=== PATIENT | male | born 1960 | race Caucasian/White ===

== ENCOUNTER 2017-01-09 08:18 | Emergency (ER) | payer OTHER ==
[2017-01-09 08:30] VITALS: BP 129/93
--- NOTE | 2017-01-09 08:35 | EDM.PDOC ---
ED HPI GENERAL MEDICAL PROBLEM - General Chief Complaint: Cardiovascular Problem Stated Complaint: AFIB Time Seen by Provider: 01/09/17 08:34 - History of Present Illness INITIAL COMMENTS - FREE TEXT/NARRATIVE: 56-year-old male presents emergency room with a irregular heartbeat and a history of atrial fibrillation in the past. Patient awoke at approximately 3:30 this morning and noticed his pulse was faster than normal. He was not having any associated symptoms at that time. The patient awoke again around 4:30 and found his pulse to be irregular and rapid. He had a mild chest pressure at that time. The pressure has resolved however the rapid rate and irregularity continues. Patient has a history of atrial fibrillation on and off for about the last 20-25 years. The patient has had a aortic valve replacement animal origin. He also has had some other valve repair. He's been on and off Coumadin. He had a ablation done in February of this year. The patient was back in atrial fibrillation in April this was medically managed he was back in sinus and off the Coumadin again in May. At this time he is chest pain-free his vital signs are stable. He is demonstrating no signs or symptoms of any compromise from his mildly elevated atrial fib with RVR Yesterday the patient felt fine and he's done well recently. He is scheduled to see Dr. Aguilar February 22. - Related Data Allergies Allergy/AdvReac Type Severity Reaction Status Date / Time iodine Allergy Itching Verified 01/09/17 08:27 Home Meds: Home Meds Propafenone [Rythmol] 225 mg PO TID 05/19/15 [History] Aspirin [Ecotrin] 325 mg PO DAILY 01/09/17 [History] Diltiazem [Cardizem CD] 180 mg PO DAILY 01/09/17 [History] Pravastatin Sodium 10 mg PO DAILY 01/09/17 [History] Propafenone [Rythmol] 300 mg PO Q8H #180 tablet 01/09/17 [Rx] Vitamin E 400 intnl unit PO DAILY 01/09/17 [History] Zinc Amino Acid Chelate [Zinc Chelated] 50 mg PO DAILY 01/09/17 [History] Past Medical History Cardiovascular History: Reports: Afib, High Cholesterol, Hypertension - Past Surgical History Cardiovascular Surgical History: Reports: Valve Replacement Musculoskeletal Surgical History: Reports: Shoulder Surgery Social & Family History - Tobacco Use Smoking Status *Q: Never Smoker - Recreational Drug Use Recreational Drug Use: No - Living Situation & Occupation Living situation: Reports: Occupation: Employed ED ROS GENERAL - Review of Systems Review Of Systems: See Below Constitutional: Reports: No Symptoms HEENT: Reports: No Symptoms Respiratory: Reports: No Symptoms Cardiovascular: Reports: Chest Pain (He had some brief chest discomfort this is resolved), Palpitations. Denies: Edema GI/Abdominal: Reports: No Symptoms Neurological: Reports: No Symptoms Hematologic/Lymphatic: Reports: No Symptoms ED EXAM, GENERAL - Physical Exam Exam: See Below Exam Limited By: No Limitations General Appearance: Alert, No Apparent Distress, Other (Vital signs stable no anginal equivalence) Head: Atraumatic, Normocephalic Neck: Normal Inspection, Supple, Non-Tender, Full Range of Motion. No: Lymphadenopathy (L), Lymphadenopathy (R), Thyromegaly Respiratory/Chest: No Respiratory Distress, Lungs Clear, Normal Breath Sounds Cardiovascular: No Edema, Tachycardia, Irregularly Irregular GI/Abdominal: Normal Bowel Sounds, Soft, Non-Tender EKG INTERPRETATION EKG Date: 01/09/17 Rhythm: A-Fib [place]: RAD-Right [place] Deviation P-Wave: Absent QRS: Normal ST-T: Other (Nonspecific nondiagnostic changes) QT: Normal Comparison: No Change (Patient had an EKG done arch 2015 no significant changes noted however on that EKG he did have frequent PVCs none noted now.) Course - Vital Signs Last Recorded V/S: Last Vital Signs Temp 36.0 C 01/09/17 09:26 Pulse 137 H 01/09/17 09:26 Resp 16 01/09/17 09:26 BP 129/93 H 01/09/17 09:26 Pulse Ox 98 01/09/17 09:26 - Orders/Labs/Meds Orders: Active Orders 24 hr Category Date Time Status EKG 12 Lead [EKG Documentation Completion] [RC] STAT Care 01/09/17 09:31 Active EKG 12 Lead [EKG Documentation Completion] [RC] STAT Care 01/09/17 11:22 Active Labs: Laboratory Tests 01/09/17 01/09/17 01/09/17 Range/Units 08:30 08:30 08:30 WBC 4.69 (4.23-9.07) K/mm3 RBC 4.67 (4.63-6.08) M/mm3 Hgb 14.5 (13.7-17.5) gm/L Hct 40.2 (40.1-51.0) % MCV 86.1 (79.0-92.2) fl MCH 31.0 (25.7-32.2) pg MCHC 36.1 H (32.2-35.5) g/dl RDW Std Deviation 38.5 (35.1-43.9) fL Plt Count 157 L (163-337) K/mm3 MPV 10.2 (9.4-12.3) fl Neutrophils % (Manual) 79 H (40-60) % Band Neutrophils % 0 (0-10) % Lymphocytes % (Manual) 11 L (20-40) % Atypical Lymphs % 0 % Monocytes % (Manual) 9 (2-10) % Eosinophils % (Manual) 1 (0.8-7.0) % Basophils % (Manual) 0 L (0.2-1.2) Platelet Estimate Adequate RBC Morph Comment Normal PT 11.5 (8.0-13.0) SECONDS INR 1.05 APTT 29 (22-36) SECONDS Sodium 141 (136-145) mEq/L Potassium 4.3 (3.5-5.1) mEq/L Chloride 107 (98-107) mEq/L Carbon Dioxide 26 (21-32) mEq/L Anion Gap 12.3 (5-15) BUN 15 (7-18) mg/dL Creatinine 0.9 (0.7-1.3) mg/dL Est Cr Clr Drug Dosing 103.57 mL/min Estimated GFR (MDRD) > 60 (>60) mL/min BUN/Creatinine Ratio 16.7 (14-18) Glucose 115 H (74-106) mg/dL Calcium 9.5 (8.5-10.1) mg/dL Total Bilirubin 0.4 (0.2-1.0) mg/dL AST 19 (15-37) U/L ALT 26 (16-63) U/L Alkaline Phosphatase 81 (46-116) U/L Troponin I < 0.017 (0.00-0.056) ng/mL Total Protein 6.6 (6.4-8.2) g/dl Albumin 3.6 (3.4-5.0) g/dl Globulin 3.0 gm/dL Albumin/Globulin Ratio 1.2 (1-2) Free T4 (0.76-1.46) ng/dL TSH 3rd Generation < 0.007 L (0.358-3.74) uIU/mL 01/09/17 Range/Units 08:30 WBC (4.23-9.07) K/mm3 RBC (4.63-6.08) M/mm3 Hgb (13.7-17.5) gm/L Hct (40.1-51.0) % MCV (79.0-92.2) fl MCH (25.7-32.2) pg MCHC (32.2-35.5) g/dl RDW Std Deviation (35.1-43.9) fL Plt Count (163-337) K/mm3 MPV (9.4-12.3) fl Neutrophils % (Manual) (40-60) % Band Neutrophils % (0-10) % Lymphocytes % (Manual) (20-40) % Atypical Lymphs % % Monocytes % (Manual) (2-10) % Eosinophils % (Manual) (0.8-7.0) % Basophils % (Manual) (0.2-1.2) Platelet Estimate RBC Morph Comment PT (8.0-13.0) SECONDS INR APTT (22-36) SECONDS Sodium (136-145) mEq/L Potassium (3.5-5.1) mEq/L Chloride (98-107) mEq/L Carbon Dioxide (21-32) mEq/L Anion Gap (5-15) BUN (7-18) mg/dL Creatinine (0.7-1.3) mg/dL Est Cr Clr Drug Dosing mL/min Estimated GFR (MDRD) (>60) mL/min BUN/Creatinine Ratio (14-18) Glucose (74-106) mg/dL Calcium (8.5-10.1) mg/dL Total Bilirubin (0.2-1.0) mg/dL AST (15-37) U/L ALT (16-63) U/L Alkaline Phosphatase (46-116) U/L Troponin I (0.00-0.056) ng/mL Total Protein (6.4-8.2) g/dl Albumin (3.4-5.0) g/dl Globulin gm/dL Albumin/Globulin Ratio (1-2) Free T4 2.55 H (0.76-1.46) ng/dL TSH 3rd Generation (0.358-3.74) uIU/mL Meds: Medications Discontinued Medications Generic Name Dose Route Start Last Admin Trade Name [place] PRN Reason Stop Dose Admin Enoxaparin Sodium 100 mg 01/09/17 09:24 01/09/17 09:35 Lovenox SUBCUT 01/09/17 09:25 100 mg ONETIME ONE Administration - Re-Assessments/Exams Free Text/Narrative Re-Assessment/Exam: 01/09/17 09:28 Attempted to discuss the situation with Dr. Aguilar, he is scrubbed in on a procedure was able to discuss situation with [place] his nurse practitioner and the recommendation is cardioversion with his history of valvular heart disease they would like him to receive a dose of Lovenox prior to this and he needs to be started on a novel anti-coagulant or Coumadin with Lovenox bridge therapy pending the results of the attempted cardioversion. Zack from anesthesia is here the patient will receive a dose of Lovenox and we will attempt cardioversion discussed risks and benefits of the cardioversion with the patient and his risks including decompensated worsening dysrhythmias, pain, possibility of a stroke albeit highly unlikely. 01/09/17 09:39 Labs reviewed troponin negative chemistries CBC thus far unremarkable his TSH is suppressed at 0.007, we will check a free T4. Patient is been evaluated by anesthesia at the patient has had a large meal around 7:00 this morning we'll delay cardioversion until approximately 12:30 mid day. However with this suppressed TSH cardiology may elect for us not to cardiovert. 01/09/17 09:51 Is reviewed with [place] from cardiology, electrophysiology. Dr. Aguilar's recommendation is to discharge with Rythmol increase to 300 mg 3 times a day if rate control as needed increase his diltiazem to 240 g daily discussed with the patient that cardioversion is less successful with his hyperthyroidism [place] will arrange endocrinology follow-up. With the thyroid dysfunction irregardless the patient needs to be on anticoagulation. 01/09/17 12:01 After 11:00 the patient converted to sinus arm immediately after doing this he had frequent PACs by the time we get an EKG on him he didn't have any more PACs he has a rare PVC on telemetry at this point. Case discussed with [place] with Dr. Aguilar's office her recommendations is Coumadin is optional at this point we will increase the Rythmol to 300 mg 3 times a day we'll not adjust the diltiazem. We discussed the pros and cons of starting Coumadin patient would like to hold off on this at this point. Departure - Departure Time of Disposition: 12:03 Disposition: Home, Self-Care Clinical Impression: Atrial fibrillation with RVR Referrals: Cali Hernandez MD [Primary Care Provider] - Forms: ED Department Discharge Additional Instructions: Return to emergency room with any questions problems or recurrent symptoms. [place] from Dr. Aguilar's office will try and get you set up to see endocrinology. Call Sunday if you have not heard back from them. We will increase her Rythmol to 300 mg 3 times a day. This will be in the form of 2 150 mg tablets every 8 hours. Follow-up with Dr. Aguilar on February 22 as previously scheduled. Per our discussion we will continue you on aspirin will not start Coumadin at this point. However if you have recurrent episodes of atrial fibrillation this may need to be reconsidered. - My Orders Last 24 Hours: My Active Orders 01/09/17 09:31 EKG 12 Lead [EKG Documentation Completion] [RC] STAT 01/09/17 11:22 EKG 12 Lead [EKG Documentation Completion] [RC] STAT - Assessment/Plan Last 24 Hours: My Active Orders 01/09/17 09:31 EKG 12 Lead [EKG Documentation Completion] [RC] STAT 01/09/17 11:22 EKG 12 Lead [EKG Documentation Completion] [RC] STAT
--- NOTE | 2017-01-09 09:23 | PCM.PREANE ---
Preanesthetic Assessment - Anesthesia/Transfusion/Family Hx Anesthesia History: Prior Anesthesia Without Reaction Type of Anesthesia Reaction: Anesthesia Awareness Family History of Anesthesia Reaction: No Transfusion History: No Prior Transfusion(s) - Review of Systems General: Malaise Pulmonary: No Symptoms Cardiovascular: Palpitations Gastrointestinal: No Symptoms Neurological: No Symptoms - Physical Assessment NPO Status Date: 01/09/17 NPO Status Time: 06:45 Pulse: 137 O2 Sat by Pulse Oximetry: 98 Respiratory Rate: 16 Blood Pressure: 129/93 Temperature: 36.0 C Vital Signs: Last Vital Signs Temp 36.0 C 01/09/17 08:27 Pulse 137 H 01/09/17 08:27 Resp BP 129/93 H 01/09/17 08:27 Pulse Ox 98 01/09/17 08:27 Height: 1.85 m Weight: 112.037 kg ASA Class: 3 Mental Status: Alert & Oriented x3 Airway Class: Mallampati = 1 Dentition: Reports: Normal Dentition, [place](s) Thyro-Mental Finger Breadths: 3 Mouth Opening Finger Breadths: 3 ROM/Head Extension: Full Lungs: Clear to Auscultation, Normal Respiratory Effort Cardiovascular: Irregular Rhythm, Tachycardia - Lab Values: Laboratory Last Values WBC 4.69 K/mm3 (4.23-9.07) 01/09/17 08:30 RBC 4.67 M/mm3 (4.63-6.08) 01/09/17 08:30 Hgb 14.5 gm/L (13.7-17.5) 01/09/17 08:30 Hct 40.2 % (40.1-51.0) 01/09/17 08:30 MCV 86.1 fl (79.0-92.2) 01/09/17 08:30 MCH 31.0 pg (25.7-32.2) 01/09/17 08:30 MCHC 36.1 g/dl (32.2-35.5) H 01/09/17 08:30 RDW Std Deviation 38.5 fL (35.1-43.9) 01/09/17 08:30 Plt Count 157 K/mm3 (163-337) L 01/09/17 08:30 MPV 10.2 fl (9.4-12.3) 01/09/17 08:30 PT 11.5 SECONDS (8.0-13.0) 01/09/17 08:30 INR 1.05 01/09/17 08:30 APTT 29 SECONDS (22-36) 01/09/17 08:30 - Imaging/EKG Impressions: on chart - Allergies Allergies/Adverse Reactions: Allergies Allergy/AdvReac Type Severity Reaction Status Date / Time iodine Allergy Itching Verified 01/09/17 08:27 - Blood Blood Available: No Product(s) Available: None - Anesthesia Plan Pre-Op Medication Ordered: None - Acknowledgements Anesthesia Type Planned: MAC Pt an Appropriate Candidate for the Planned Anesthesia: Yes Alternatives and Risks of Anesthesia Discussed w Pt/Guardian: Yes Pt/Guardian Understands and Agrees with Anesthesia Plan: Yes PreAnesthesia Questionnaire HEENT History: Reports: Impaired Vision Other HEENT History: wears eyeglasses Cardiovascular History: Reports: Afib, High Cholesterol, Hypertension Respiratory History: Reports: Pneumonia, Recurrent Musculoskeletal History: Reports: Fracture, Other (See Below) Other Musculoskeletal History: R) wrist surgery. 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 - Past Surgical History Cardiovascular Surgical History: Reports: Valve Replacement Musculoskeletal Surgical History: Reports: Shoulder Surgery - SUBSTANCE USE Smoking Status *Q: Never Smoker Second Hand Smoke Exposure: No Days Per Week of Alcohol Use: 0 Number of Drinks Per Day: 0 Total Drinks Per Week: 0 Recreational Drug Use History: No - HOME MEDS Home Medications: Home Meds Propafenone [Rythmol] 225 mg PO TID 05/19/15 [History] Aspirin [Ecotrin] 325 mg PO DAILY 01/09/17 [History] Diltiazem [Cardizem CD] 180 mg PO DAILY 01/09/17 [History] Pravastatin Sodium 10 mg PO DAILY 01/09/17 [History] Vitamin E 400 intnl unit PO DAILY 01/09/17 [History] Zinc Amino Acid Chelate [Zinc Chelated] 50 mg PO DAILY 01/09/17 [History]
[2017-01-09] MEDS ORDERED: Enoxaparin 100 MG/1 ML Syringe SUBCUT ONE (09:24)
--- NOTE | 2017-01-09 10:59 | CR ---
Chest: Portable view of the chest was obtained. Comparison: Prior chest x-ray of 05/19/15. Heart size and mediastinum are within normal limits for portable technique. Sternotomy is noted for prosthetic heart valve. Lungs are clear. Bony structures are grossly intact. Impression: 1. Previous valve replacement. Nothing acute is seen on portable chest x-ray. No significant change is seen from prior study. Diagnostic code #2
== END 2017-01-09 13:30 | disposition home or self-care (01) ==
LOC: JD.ED 08:18
DX: I48.91 Unspecified atrial fibrillation (principal); I10 Essential (primary) hypertension; E78.00 Pure hypercholesterolemia, unspecified; Z79.899 Other long term (current) drug therapy; Z79.82 Long term (current) use of aspirin; Z91.048 Other nonmedicinal substance allergy status
CPT/HCPCS: 36415; 71010; 80053; 84439; 84443; 84484; 85025; 85610; 85730; 93005; 96372; 99285; J1650; 93010; 99284

== ENCOUNTER 2017-03-20 13:05 | Emergency (ER) | payer OTHER ==
[2017-03-20 13:18] VITALS: BP 102/88
[2017-03-20] MEDS ORDERED: Diltiazem 25 MG/5 ML SDV IVPUSH ONE (13:27)
[2017-03-20] MEDS ORDERED: Sodium Chloride 0.9% 10 ML Syringe FLUSH PRN (13:27)
[2017-03-20] MEDS ORDERED: Diltiazem 125 MG in Sodium Chloride 0.9% 100 ML IV SCH (13:30)
[2017-03-20] MEDS ORDERED: Sodium Chloride 0.9% 1,000 ML IV SCH (13:30)
--- NOTE | 2017-03-20 14:53 | EDM.PDOC ---
ED HPI GENERAL MEDICAL PROBLEM - General Chief Complaint: Cardiovascular Problem Stated Complaint: IRREGULAR HEART BEAT Time Seen by Provider: 03/20/17 13:24 Source of Information: Reports: Patient History Limitations: Reports: No Limitations - History of Present Illness INITIAL COMMENTS - FREE TEXT/NARRATIVE: The patient presents with palpitations. This started last night. He has a history of A-fib. He had ablation a few months ago. He has some flutter now and he is going back to get more ablation with Dr Stock. He denies chest pain or shortness of breath. He has no abdominal pain, nausea or vomiting. He has no fever, chills, or cough. Onset: Gradual Duration: Day(s): (last night) Improves with: Reports: None Worsens with: Reports: None Associated Symptoms: Denies: Chest Pain, Fever/Chills, Headaches, Nausea/ Vomiting, Shortness of Breath - Related Data Allergies Allergy/AdvReac Type Severity Reaction Status Date / Time iodine Allergy Itching Verified 01/09/17 08:27 Home Meds: Home Meds Propafenone [Rythmol] 225 mg PO TID 05/19/15 [History] Aspirin [Ecotrin] 325 mg PO DAILY 01/09/17 [History] Diltiazem [Cardizem CD] 180 mg PO DAILY 01/09/17 [History] Pravastatin Sodium 10 mg PO DAILY 01/09/17 [History] Propafenone [Rythmol] 300 mg PO Q8H #180 tablet 01/09/17 [Rx] Vitamin E 400 intnl unit PO DAILY 01/09/17 [History] Zinc Amino Acid Chelate [Zinc Chelated] 50 mg PO DAILY 01/09/17 [History] Past Medical History HEENT History: Reports: Impaired Vision Other HEENT History: wears eyeglasses Cardiovascular History: Reports: Afib, High Cholesterol, Hypertension Respiratory History: Reports: Pneumonia, Recurrent Musculoskeletal History: Reports: Fracture, Other (See Below) Other Musculoskeletal History: R) wrist surgery. 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 - Past Surgical History Cardiovascular Surgical History: Reports: Valve Replacement Musculoskeletal Surgical History: Reports: Shoulder Surgery Social & Family History - Tobacco Use Smoking Status *Q: Never Smoker Second Hand Smoke Exposure: No - Caffeine Use Caffeine Use: Reports: None - Alcohol Use Days Per Week of Alcohol Use: 0 Number of Drinks Per Day: 0 Total Drinks Per Week: 0 - Recreational Drug Use Recreational Drug Use: No - Living Situation & Occupation Living situation: Reports: Occupation: Employed ED ROS GENERAL - Review of Systems Review Of Systems: See Below Constitutional: Reports: No Symptoms HEENT: Reports: No Symptoms Respiratory: Reports: No Symptoms Cardiovascular: Reports: Palpitations. Denies: Chest Pain Endocrine: Reports: No Symptoms GI/Abdominal: Reports: No Symptoms : Reports: No Symptoms Musculoskeletal: Reports: No Symptoms ED EXAM, GENERAL - Physical Exam Exam: See Below Exam Limited By: No Limitations General Appearance: Alert, No Apparent Distress Ears: Normal External Exam Nose: Normal Inspection Head: Atraumatic, Normocephalic Neck: Normal Inspection Respiratory/Chest: No Respiratory Distress, Lungs Clear, Normal Breath Sounds Cardiovascular: No Edema, No Murmur, Tachycardia GI/Abdominal: Soft, Non-Tender, No Organomegaly, No Mass Back Exam: Normal Inspection Extremities: Normal Inspection EKG INTERPRETATION EKG Date: 03/20/17 Time: 13:19 Rhythm: Other (Junctional tachycardia) Rate (Beats/Min): 132 [place]: Normal P-Wave: Present QRS: Normal ST-T: Normal QT: Normal Course - Vital Signs Last Recorded V/S: Last Vital Signs Temp 98.6 F 03/20/17 13:13 Pulse 132 H 03/20/17 13:13 Resp 17 03/20/17 13:13 BP 102/88 03/20/17 13:13 Pulse Ox 99 03/20/17 13:13 - Orders/Labs/Meds Orders: Active Orders 24 hr Category Date Time Status Cardiac Monitoring [RC] . DIRECTED Care 03/20/17 13:27 Active EKG Documentation Completion [RC] STAT Care 03/20/17 13:27 Active Peripheral IV Care [RC] . DIRECTED Care 03/20/17 13:27 Active TSH [CHEM] Stat Lab 03/20/17 14:44 Ordered Diltiazem 125 mg Med 03/20/17 13:30 Active Sodium Chloride 0.9% [Normal Saline] 100 ml IV TITRATE Sodium Chloride 0.9% [Normal Saline] 1,000 ml Med 03/20/17 13:30 Active IV ASDIRECTED Sodium Chloride 0.9% [Saline Flush] Med 03/20/17 13:27 Active 10 ml FLUSH ASDIRECTED PRN Peripheral IV Insertion Adult [OM.PC] Stat Oth 03/20/17 13:27 Ordered Medication Orders Diltiazem HCl 125 mg/ Sodium (Chloride) 125 mls @ 10 mls/hr IV TITRATE SHANNEN; 10 MG/HR PRN Reason: Protocol Sodium Chloride (Normal Saline) 1,000 mls @ 125 mls/hr IV ASDIRECTED SHANNEN Last Admin: 03/20/17 13:40 Dose: 125 mls/hr Sodium Chloride (Saline Flush) 10 ml FLUSH ASDIRECTED PRN PRN Reason: Keep Vein Open Last Admin: 03/20/17 13:45 Dose: 10 ml Labs: Laboratory Tests 03/20/17 03/20/17 Range/Units 13:27 13:27 WBC 7.17 (4.23-9.07) K/mm3 RBC 5.11 (4.63-6.08) M/mm3 Hgb 15.6 (13.7-17.5) gm/L Hct 43.7 (40.1-51.0) % MCV 85.5 (79.0-92.2) fl MCH 30.5 (25.7-32.2) pg MCHC 35.7 H (32.2-35.5) g/dl RDW Std Deviation 42.3 (35.1-43.9) fL Plt Count 136 L (163-337) K/mm3 MPV 10.4 (9.4-12.3) fl Neut % (Auto) 61.4 (34.0-67.9) % Lymph % (Auto) 25.0 (21.8-53.1) % [place] % (Auto) 9.9 (5.3-12.2) % Eos % (Auto) 3.5 (0.8-7.0) Baso % (Auto) 0.1 (0.1-1.2) % Neut # (Auto) 4.40 (1.78-5.38) K/mm3 Lymph # (Auto) 1.79 (1.32-3.57) K/mm3 [place] # (Auto) 0.71 (0.30-0.82) K/mm3 Eos # (Auto) 0.25 (0.04-0.54) K/mm3 Baso # (Auto) 0.01 (0.01-0.08) K/mm3 Sodium 143 (136-145) mEq/L Potassium 5.0 (3.5-5.1) mEq/L Chloride 108 H (98-107) mEq/L Carbon Dioxide 26 (21-32) mEq/L Anion Gap 14.0 (5-15) BUN 17 (7-18) mg/dL Creatinine 1.0 (0.7-1.3) mg/dL Est Cr Clr Drug Dosing 93.22 mL/min Estimated GFR (MDRD) > 60 (>60) mL/min BUN/Creatinine Ratio 17.0 (14-18) Glucose 94 (74-106) mg/dL Calcium 9.0 (8.5-10.1) mg/dL Total Bilirubin 0.5 (0.2-1.0) mg/dL AST 29 (15-37) U/L ALT 25 (16-63) U/L Alkaline Phosphatase 74 (46-116) U/L Troponin I 0.020 (0.00-0.056) ng/mL Total Protein 6.7 (6.4-8.2) g/dl Albumin 3.8 (3.4-5.0) g/dl Globulin 2.9 gm/dL Albumin/Globulin Ratio 1.3 (1-2) Meds: Medications Generic Name Dose Route Start Last Admin Trade Name Freq PRN Reason Stop Dose Admin Diltiazem HCl 125 mg/ Sodium 125 mls @ 10 mls/hr 03/20/17 13:30 Chloride IV TITRATE SHANNEN Protocol 10 MG/HR Sodium Chloride 1,000 mls @ 125 mls/hr 03/20/17 13:30 03/20/17 13:40 Normal Saline IV 125 mls/hr ASDIRECTED SHANNEN Administration Sodium Chloride 10 ml 03/20/17 13:27 03/20/17 13:45 Saline Flush FLUSH 10 ml ASDIRECTED PRN Administration Keep Vein Open Discontinued Medications Generic Name Dose Route Start Last Admin Trade Name Freq PRN Reason Stop Dose Admin Diltiazem HCl 10 mg 03/20/17 13:27 03/20/17 13:42 Diltiazem IVPUSH 03/20/17 13:28 10 mg ONETIME ONE Administration - Re-Assessments/Exams Free Text/Narrative Re-Assessment/Exam: 03/20/17 14:55 I ordered an EKG, labs, CBC and CMP. His EKG shows a juntional tachycardia. I ordered a cardizem bolus of 10mg and a drip at 10mg/hr. He converted with the 10mg IV bolus. His CBC and CMP look good. His troponin is negative. I will discharge him home. 03/20/17 14:57 Please send a copy of this dictation to Dr [facility] at [facility] in [place]. Departure - Departure Time of Disposition: 15:00 Disposition: Home, Self-Care Condition: Good Clinical Impression: Palpitations, Junctional tachycardia Referrals: Cali Hernandez MD [Primary Care Provider] - 1 Week Additional Instructions: Take your medication as prescribed. Please return if you are worse. Follow up with Dr Stock and Dr Soto. - My Orders Last 24 Hours: My Active Orders 03/20/17 13:27 Cardiac Monitoring [RC] . DIRECTED EKG Documentation Completion [RC] STAT Peripheral IV Care [RC] . DIRECTED Sodium Chloride 0.9% [Saline Flush] 10 ml FLUSH ASDIRECTED PRN Peripheral IV Insertion Adult [OM.PC] Stat 03/20/17 13:30 Diltiazem 125 mg Sodium Chloride 0.9% [Normal Saline] 100 ml IV TITRATE Sodium Chloride 0.9% [Normal Saline] 1,000 ml IV ASDIRECTED 03/20/17 14:44 TSH [CHEM] Stat - Assessment/Plan Last 24 Hours: My Active Orders 03/20/17 13:27 Cardiac Monitoring [RC] . DIRECTED EKG Documentation Completion [RC] STAT Peripheral IV Care [RC] . DIRECTED Sodium Chloride 0.9% [Saline Flush] 10 ml FLUSH ASDIRECTED PRN Peripheral IV Insertion Adult [OM.PC] Stat 03/20/17 13:30 Diltiazem 125 mg Sodium Chloride 0.9% [Normal Saline] 100 ml IV TITRATE Sodium Chloride 0.9% [Normal Saline] 1,000 ml IV ASDIRECTED 03/20/17 14:44 TSH [CHEM] Stat
== END 2017-03-20 15:08 | disposition home or self-care (01) ==
LOC: JD.ED 13:05
DX: I47.1 Supraventricular tachycardia (principal); I48.91 Unspecified atrial fibrillation; I10 Essential (primary) hypertension; E78.00 Pure hypercholesterolemia, unspecified; Z95.2 Presence of prosthetic heart valve; Z79.82 Long term (current) use of aspirin; Z79.899 Other long term (current) drug therapy; Z88.8 Allergy status to other drugs, medicaments and biological substances
CPT/HCPCS: 36415; 80053; 84443; 84484; 85025; 93005; 96361; 96374; 99285; J3490; J7040; J7050; 93010; 99284-25

== ENCOUNTER 2017-07-31 15:34 | Emergency (ER) | payer OTHER ==
[2017-07-31] MEDS ORDERED: Sodium Chloride 0.9% 10 ML Syringe FLUSH PRN (15:49)
[2017-07-31] MEDS ORDERED: Sodium Chloride 0.9% 1,000 ML IV ONE (15:50)
[2017-07-31] MEDS ORDERED: Diltiazem 25 MG/5 ML SDV IVPUSH ONE (15:51)
--- NOTE | 2017-07-31 15:51 | EDM.PDOC ---
ED HPI GENERAL MEDICAL PROBLEM - General Chief Complaint: Cardiovascular Problem Stated Complaint: HEART RACING Time Seen by Provider: 07/31/17 15:47 Source of Information: Reports: Patient History Limitations: Reports: No Limitations - History of Present Illness INITIAL COMMENTS - FREE TEXT/NARRATIVE: 57 y/o M with hx paroxysmal a-fib/flutter with hx prior ablation, scheduled for repeat ablation in early August, presents with feeilng of heart racing and fatigue. Started early this morning. [place] fine yesterday. Feels like his heart is racing. Feels fatigued. No additional complaint. No CP. No SOB. No provoking factor. Has been compliant with his meds which include propranolol and propafenone. No fever/recent illness. No vomiting. No lower extremity pain/ swelling. - Related Data Allergies Allergy/AdvReac Type Severity Reaction Status Date / Time iodine Allergy Itching Verified 01/09/17 08:27 Home Meds: Home Meds Aspirin [Ecotrin] 325 mg PO DAILY 01/09/17 [History] Pravastatin Sodium 10 mg PO DAILY 01/09/17 [History] Propafenone [Rythmol] 300 mg PO Q8H #180 tablet 01/09/17 [Rx] Vitamin E 400 intnl unit PO DAILY 01/09/17 [History] Zinc Amino Acid Chelate [Zinc Chelated] 50 mg PO DAILY 01/09/17 [History] Calcium Carbonate/Vitamin D3 [Calcium 500 + Vit D Caplet] 1 each PO DAILY [History] Fish Oil/[place]-3 Fatty Acids [Fish Oil] 1 each PO DAILY 07/31/17 [History] Nystatin 1 applic TP ASDIRECTED PRN 07/31/17 [History] Propranolol HCl [Inderal Xl] 80 mg PO DAILY 07/31/17 [History] Triamcinolone Acetonide [Triamcinolone Acetonide 0.1% Crm] 1 applic TOP ASDIRECTED PRN 07/31/17 [History] Ubidecarenone [Co Q-10] 100 mg PO DAILY 07/31/17 [History] Warfarin [Coumadin] 7.5 mg PO ASDIRECTED 07/31/17 [History] Warfarin [Coumadin] 10 mg PO ASDIRECTED 07/31/17 [History] Past Medical History HEENT History: Reports: Impaired Vision Other HEENT History: wears eyeglasses Cardiovascular History: Reports: Afib, High Cholesterol, Hypertension Respiratory History: Reports: Pneumonia, Recurrent Musculoskeletal History: Reports: Fracture, Other (See Below) Other Musculoskeletal History: R) wrist surgery. 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 - Past Surgical History Cardiovascular Surgical History: Reports: Valve Replacement Musculoskeletal Surgical History: Reports: Shoulder Surgery Social & Family History - Family History Family Medical History: Noncontributory - Tobacco Use Smoking Status *Q: Never Smoker - Caffeine Use Caffeine Use: Reports: Soda - Recreational Drug Use Recreational Drug Use: No - Living Situation & Occupation Living situation: Reports: Occupation: Employed [employer] GENERAL - Review of Systems Review Of Systems: See Below Constitutional: Reports: Weakness, Fatigue HEENT: Reports: No Symptoms Respiratory: Denies: Shortness of Breath Cardiovascular: Reports: Palpitations. Denies: Chest Pain Endocrine: Reports: No Symptoms GI/Abdominal: Reports: No Symptoms : Reports: No Symptoms Musculoskeletal: Reports: No Symptoms Skin: Reports: No Symptoms Neurological: Reports: No Symptoms ED EXAM, GENERAL - Physical Exam Exam: See Below Exam Limited By: No Limitations General Appearance: Alert, WD/WN, No Apparent Distress Eye Exam: Bilateral Eye: Normal Inspection Ears: Normal External Exam Nose: Normal Inspection Throat/Mouth: Normal Inspection, Normal Oropharynx, Normal Voice, No Airway Compromise Head: Atraumatic, Normocephalic Neck: Normal Inspection, Supple, Non-Tender, Full Range of Motion Respiratory/Chest: No Respiratory Distress, Lungs Clear, Normal Breath Sounds, No Accessory Muscle Use, Chest Non-Tender Cardiovascular: Normal Peripheral Pulses, No Edema, No Murmur, Tachycardia, Other (regular) GI/Abdominal: Soft, Non-Tender, No Distention. No: Rebound Extremities: Normal Inspection. No: Pedal Edema Neurological: Alert, Oriented, Normal Cognition, No Motor/Sensory Deficits Psychiatric: Normal Affect, Normal Mood Skin Exam: Warm, Dry, Intact, Normal Color, No Rash Course - Vital Signs Last Recorded V/S: Last Vital Signs Temp 36.6 C 07/31/17 17:26 Pulse 58 L 07/31/17 17:26 Resp 17 07/31/17 17:26 BP 98/68 07/31/17 17:26 Pulse Ox 98 07/31/17 17:26 - Orders/Labs/Meds Orders: Active Orders 24 hr Category Date Time Status EKG 12 Lead [EKG Documentation Completion] [RC] STAT Care 07/31/17 16:14 Active EKG Documentation Completion [RC] STAT Care 07/31/17 16:09 Active Peripheral IV Care [RC] . DIRECTED Care 07/31/17 15:49 Active Chest 1V Frontal [CR] Stat Exams 07/31/17 15:49 Taken T4 FREE [CHEM] Stat Lab 07/31/17 15:55 Received Sodium Chloride 0.9% [Saline Flush] Med 07/31/17 15:49 Active 10 ml FLUSH ASDIRECTED PRN Peripheral IV Insertion Adult [OM.PC] Routine Oth 07/31/17 15:49 Ordered Medication Orders Sodium Chloride (Saline Flush) 10 ml FLUSH ASDIRECTED PRN PRN Reason: Keep Vein Open Last Admin: 07/31/17 16:04 Dose: 10 ml Labs: Laboratory Tests 07/31/17 07/31/17 07/31/17 Range/Units 15:55 15:55 15:55 WBC 5.92 (4.23-9.07) K/mm3 RBC 4.83 (4.63-6.08) M/mm3 Hgb 15.1 (13.7-17.5) gm/L Hct 42.1 (40.1-51.0) % MCV 87.2 (79.0-92.2) fl MCH 31.3 (25.7-32.2) pg MCHC 35.9 H (32.2-35.5) g/dl RDW Std Deviation 40.6 (35.1-43.9) fL Plt Count 161 L (163-337) K/mm3 MPV 10.4 (9.4-12.3) fl Neut % (Auto) 63.3 (34.0-67.9) % Lymph % (Auto) 21.8 (21.8-53.1) % Placer % (Auto) 11.7 (5.3-12.2) % Eos % (Auto) 3.0 (0.8-7.0) Baso % (Auto) 0.0 L (0.1-1.2) % Neut # (Auto) 3.75 (1.78-5.38) K/mm3 Lymph # (Auto) 1.29 L (1.32-3.57) K/mm3 Placer # (Auto) 0.69 (0.30-0.82) K/mm3 Eos # (Auto) 0.18 (0.04-0.54) K/mm3 Baso # (Auto) 0.00 L (0.01-0.08) K/mm3 PT 24.7 H (9.5-12.1) SECONDS INR 2.30 Sodium 141 (136-145) mEq/L Potassium 4.2 (3.5-5.1) mEq/L Chloride 108 H (98-107) mEq/L Carbon Dioxide 23 (21-32) mEq/L Anion Gap 14.2 (5-15) BUN 20 H (7-18) mg/dL Creatinine 1.1 (0.7-1.3) mg/dL Est Cr Clr Drug Dosing 83.73 mL/min Estimated GFR (MDRD) > 60 (>60) mL/min BUN/Creatinine Ratio 18.2 H (14-18) Glucose 121 H (74-106) mg/dL Calcium 9.3 (8.5-10.1) mg/dL Magnesium 1.9 (1.8-2.4) mg/dl Total Bilirubin 0.6 (0.2-1.0) mg/dL AST 19 (15-37) U/L ALT 25 (16-63) U/L Alkaline Phosphatase 69 (46-116) U/L Troponin I 0.027 (0.00-0.056) ng/mL Total Protein 6.7 (6.4-8.2) g/dl Albumin 3.8 (3.4-5.0) g/dl Globulin 2.9 gm/dL Albumin/Globulin Ratio 1.3 (1-2) TSH 3rd Generation (0.358-3.74) uIU/mL 07/31/17 Range/Units 15:55 WBC (4.23-9.07) K/mm3 RBC (4.63-6.08) M/mm3 Hgb (13.7-17.5) gm/L Hct (40.1-51.0) % MCV (79.0-92.2) fl MCH (25.7-32.2) pg MCHC (32.2-35.5) g/dl RDW Std Deviation (35.1-43.9) fL Plt Count (163-337) K/mm3 MPV (9.4-12.3) fl Neut % (Auto) (34.0-67.9) % Lymph % (Auto) (21.8-53.1) % Placer % (Auto) (5.3-12.2) % Eos % (Auto) (0.8-7.0) Baso % (Auto) (0.1-1.2) % Neut # (Auto) (1.78-5.38) K/mm3 Lymph # (Auto) (1.32-3.57) K/mm3 Placer # (Auto) (0.30-0.82) K/mm3 Eos # (Auto) (0.04-0.54) K/mm3 Baso # (Auto) (0.01-0.08) K/mm3 PT (9.5-12.1) SECONDS INR Sodium (136-145) mEq/L Potassium (3.5-5.1) mEq/L Chloride (98-107) mEq/L Carbon Dioxide (21-32) mEq/L Anion Gap (5-15) BUN (7-18) mg/dL Creatinine (0.7-1.3) mg/dL Est Cr Clr Drug Dosing mL/min Estimated GFR (MDRD) (>60) mL/min BUN/Creatinine Ratio (14-18) Glucose (74-106) mg/dL Calcium (8.5-10.1) mg/dL Magnesium (1.8-2.4) mg/dl Total Bilirubin (0.2-1.0) mg/dL AST (15-37) U/L ALT (16-63) U/L Alkaline Phosphatase (46-116) U/L Troponin I (0.00-0.056) ng/mL Total Protein (6.4-8.2) g/dl Albumin (3.4-5.0) g/dl Globulin gm/dL Albumin/Globulin Ratio (1-2) TSH 3rd Generation 3.380 (0.358-3.74) uIU/mL Meds: Medications Generic Name Dose Route Start Last Admin Trade Name Freq PRN Reason Stop Dose Admin Sodium Chloride 10 ml 07/31/17 15:49 07/31/17 16:04 Saline Flush FLUSH 10 ml ASDIRECTED PRN Administration Keep Vein Open Discontinued Medications Generic Name Dose Route Start Last Admin Trade Name [place] PRN Reason Stop Dose Admin Diltiazem HCl 10 mg 07/31/17 15:51 07/31/17 16:07 Diltiazem IVPUSH 07/31/17 15:52 10 mg ONETIME ONE Administration Sodium Chloride 1,000 mls @ 1,000 mls/hr 07/31/17 15:50 07/31/17 16:05 Normal Saline IV 07/31/17 16:49 1,000 mls/hr ONETIME ONE Administration - Re-Assessments/Exams Free Text/Narrative Re-Assessment/Exam: 07/31/17 16:56 CXR shows no acute abnormality. EKG shows narrow complex tachycardia, absent p- waves, c/w junctional tachycardia, rate 130, similar to EKG dated 03/08. Given diltiazem 10mg IV and converted to NSR. Rpt EKG shows NSR, normal intervals, T wave inversions leads V3/4, no significant ST abnormality. Labs pending. Encouarged pt to keep taking his meds as prescribed and f/u with cardiology as planned. Discussed return precautions. Departure - Departure Time of Disposition: 17:15 Disposition: Home, Self-Care 01 Clinical Impression: Junctional tachycardia Referrals: Cali Hernandez MD [Primary Care Provider] - Forms: ED Department Discharge Additional Instructions: 1. Follow up with your carpet measurer in August as planned 2. Continue your current medications. Your lab results including thyroid function tests were normal. 3. Return to the ED if you have a new episode of heart racing, chest pain, shortness of breath, or other concerning symptoms - My Orders Last 24 Hours: My Active Orders 07/31/17 15:49 Peripheral IV Care [RC] . DIRECTED Chest 1V Frontal [CR] Stat Sodium Chloride 0.9% [Saline Flush] 10 ml FLUSH ASDIRECTED PRN Peripheral IV Insertion Adult [OM.PC] Routine 07/31/17 15:55 T4 FREE [CHEM] Stat 07/31/17 16:09 EKG Documentation Completion [RC] STAT 07/31/17 16:14 EKG 12 Lead [EKG Documentation Completion] [RC] STAT - Assessment/Plan Last 24 Hours: My Active Orders 07/31/17 15:49 Peripheral IV Care [RC] . DIRECTED Chest 1V Frontal [CR] Stat Sodium Chloride 0.9% [Saline Flush] 10 ml FLUSH ASDIRECTED PRN Peripheral IV Insertion Adult [OM.PC] Routine 07/31/17 15:55 T4 FREE [CHEM] Stat 07/31/17 16:09 EKG Documentation Completion [RC] STAT 07/31/17 16:14 EKG 12 Lead [EKG Documentation Completion] [RC] STAT
[2017-07-31 17:35] VITALS: BP 98/68
--- NOTE | 2017-08-01 07:44 | CR ---
Chest: Portable view of the chest was obtained. Comparison: Prior chest x-ray of 01/09/17. Heart size is slightly prominent but accentuated from portable technique. Sternotomy is noted with prosthetic heart valve. Lungs are clear with no acute parenchymal change. Bony structures are grossly intact. Impression: 1. Nothing acute is seen on portable chest x-ray. Diagnostic code #2
== END 2017-07-31 17:26 | disposition home or self-care (01) ==
LOC: JD.ED 15:34
DX: I47.1 Supraventricular tachycardia (principal); I10 Essential (primary) hypertension; Z79.82 Long term (current) use of aspirin; Z79.899 Other long term (current) drug therapy; Z91.09 Other allergy status, other than to drugs and biological substances
CPT/HCPCS: 36415; 71045; 80053; 83735; 84439; 84443; 84484; 85025; 85610; 93005; 96361; 96374; 99285; J3490; J7040; J7050; 93010; 99284-25

== ENCOUNTER 2017-09-23 15:17 | Emergency (ER) | payer OTHER ==
[2017-09-23 15:30] VITALS: BP 121/81
--- NOTE | 2017-09-23 15:40 | EDM.PDOC ---
ED HPI GENERAL MEDICAL PROBLEM - General Chief Complaint: Eye Problems Stated Complaint: L EYE INJURY Time Seen by Provider: 09/23/17 15:40 Source of Information: Reports: Patient History Limitations: Reports: No Limitations - History of Present Illness INITIAL COMMENTS - FREE TEXT/NARRATIVE: 57-year-old male attends the ED with an acute injury to his left eye. He states he was out working in the garden and Benadryl over and a bamboo stick poked him in the left eye. This is resulted in an acute abrasion to the upper eyelid and eyebrow area. Reports eye pain and some diplopia in certain areas of his visual field. He feels like there is vertical diplopia where he can see to numbers one on top of the other when he looks at a clock etc. Injury occurred within the last hour. He's not sure when his last tetanus toxoid was updated. Onset: Today Onset Date: 09/23/17 Onset Time: 15:00 Duration: Minutes: Location: Reports: Face (Left alae.) Quality: Reports: Ache, Burning, Other (Double vision) Severity: Moderate Improves with: Reports: Rest (An eye closure.) Worsens with: Reports: Other (Appears to have double vision on looking particularly left lateral and upwards. Skin C2 6 is 1 tab the other when he looks at the clock and normal etc. Has not appreciated diplopia on looking near but only far away.) Context: Reports: Trauma. Denies: Activity, Exercise, Lifting, Sick Contact Associated Symptoms: Reports: No Other Symptoms. Denies: Confusion, Chest Pain , Cough, cough w sputum, Diaphoresis, Fever/Chills, Loss of Appetite, Malaise, Nausea/Vomiting Treatments SOCIAL MEDIA EXECUTIVE: Reports: Other (see below) (None.) Left Eye Pain Score (Numeric/FACES): 2 - Related Data Allergies Allergy/AdvReac Type Severity Reaction Status Date / Time iodine Allergy Itching Verified 09/23/17 15:26 Home Meds: Home Meds Aspirin [Ecotrin] 325 mg PO DAILY 01/09/17 [History] Pravastatin Sodium 10 mg PO DAILY 01/09/17 [History] Propafenone [Rythmol] 300 mg PO Q8H #180 tablet 01/09/17 [Rx] Vitamin E 400 intnl unit PO DAILY 01/09/17 [History] Zinc Amino Acid Chelate [Zinc Chelated] 50 mg PO DAILY 01/09/17 [History] Calcium Carbonate/Vitamin D3 [Calcium 500 + Vit D Caplet] 1 each PO DAILY [History] Fish Oil/[place]-3 Fatty Acids [Fish Oil] 1 each PO DAILY 07/31/17 [History] Nystatin 1 applic TP ASDIRECTED PRN 07/31/17 [History] Propranolol HCl [Inderal Xl] 80 mg PO DAILY 07/31/17 [History] Triamcinolone Acetonide [Triamcinolone Acetonide 0.1% Crm] 1 applic TOP ASDIRECTED PRN 07/31/17 [History] Ubidecarenone [Co Q-10] 100 mg PO DAILY 07/31/17 [History] Warfarin [Coumadin] 7.5 mg PO ASDIRECTED 07/31/17 [History] Warfarin [Coumadin] 10 mg PO ASDIRECTED 07/31/17 [History] Past Medical History HEENT History: Reports: Impaired Vision Other HEENT History: wears eyeglasses Cardiovascular History: Reports: Afib (And is on Coumadin.), Arrhythmia, High Cholesterol, Hypertension Respiratory History: Reports: Pneumonia, Recurrent Musculoskeletal History: Reports: Fracture, Other (See Below) Other Musculoskeletal History: R) wrist surgery. 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 - Past Surgical History Cardiovascular Surgical History: Reports: Valve Replacement Musculoskeletal Surgical History: Reports: Shoulder Surgery Social & Family History - Family History Family Medical History: Noncontributory - Tobacco Use Smoking Status *Q: Never Smoker - Caffeine Use Caffeine Use: Reports: Soda - Living Situation & Occupation Living situation: Reports: Occupation: Employed [facility] [employer] - Review of Systems Review Of Systems: See Below Constitutional: Denies: Fever, Chills, Malaise, Weakness, Fatigue, Decreased Appetite HEENT: Reports: Eye Pain (See history of present illness), Glasses (Only for reading.). Denies: Contact Lenses Respiratory: Reports: No Symptoms Cardiovascular: Reports: Lightheadedness, Palpitations. Denies: Chest Pain, Blood Pressure Problem, Claudication, Dyspnea on Exertion, Edema (Occasionally.) , Orthopnea Endocrine: Reports: Fatigue (Occasionally. From medications.) GI/Abdominal: Reports: No Symptoms : Reports: No Symptoms Musculoskeletal: Reports: No Symptoms Skin: Reports: No Symptoms Neurological: Reports: No Symptoms Psychiatric: Reports: No Symptoms Hematologic/Lymphatic: Reports: No Symptoms Immunologic: Reports: No Symptoms ED EXAM GENERAL W FULL EYE - Physical Exam Exam: See Below Exam Limited By: No Limitations General Appearance: Alert, WD/WN, No Apparent Distress Eye Exam: Left Eye: Normal Fundi, Normal Inspection, Periorbital Changes ( Patient has a linear abrasion across his upper eyelid and involving the mid lateral aspect of his left eyebrow area.) Eyelids: Left: Normal Appearance (Abrasion with contusion and swelling of the upper eyelid.) Conjunctiva & Sclera: Left: Injected (Appears to of contused the superior aspect of the sclera via his upper eyelid. This is a superficial contusion without any deep abrasion of the sclera per se.) Cornea Exam: Left: Normal Appearance Extraocular Movements: Bilateral: Other (I believe he has pain from contusion to the sclera which limits his mobility due to pain. On my assessment his visual canseco were normal and he was able to follow the light well with no signs of a gaze palsy.) Pupils: Normal Accommodation Pupillary Size: Right: 6 mm Pupillary Reaction: Bilateral: Brisk Anterior Chamber: Left: Normal Appearance Posterior Chamber: Left: Normal Funduscopic Course - Vital Signs Last Recorded V/S: Last Vital Signs Temp 36.9 C 09/23/17 15:26 Pulse 63 09/23/17 15:26 Resp BP 121/81 09/23/17 15:26 Pulse Ox 98 09/23/17 15:26 - Orders/Labs/Meds Meds: Medications Discontinued Medications Generic Name Dose Route Start Last Admin Trade Name Freq PRN Reason Stop Dose Admin Diphtheria/Tetanus/Acell Pertussis 0.5 ml 09/23/17 15:55 09/23/17 16:07 Adacel IM 09/23/17 15:56 0.5 ml .ONCE ONE Administration - Radiology Interpretation Free Text/Narrative:: 57-year-old male attends the ED with blunt trauma to his left upper eyelid and eyebrow area. He appreciates some diplopia but I believe it secondary to pain response due to contusion of the superior aspect of the sclera. There is no true intraocular injury with an evidence of intraocular bleeding or a true gaze palsy on examination. He does have a significant abrasion with swelling of his left upper eyelid and similarly abrasion contusion to the left eyebrow area. These will be treated conservatively with topical antibiotic. Follow up 48 hours with milieu coordinator if any further problems with double vision occur. Departure - Departure Time of Disposition: 16:08 Disposition: Home, Self-Care 01 Condition: Fair Clinical Impression: Contusion of left eyelid and periocular area, initial encounter - Discharge Information *PRESCRIPTION DRUG MONITORING PROGRAM REVIEWED*: Not Applicable *COPY OF PRESCRIPTION DRUG MONITORING REPORT IN PATIENT BRAD: Not Applicable Instructions: Contusion, [id number] Referrals: Cali Hernandez MD [Primary Care Provider] - Forms: ED Department Discharge Additional Instructions: Evaluation the emergency room today in regards to contusion to the left upper eyelid and left eyebrow area. Injury occurred while working in the garden and looking down and was struck by a bamboo stick. This resulted in a contusion to the left upper part of your eye /eyelid with an abrasion above the left mid eye brow. You have appreciated double vision in certain movements . Full inspection of the eye including slit-lamp exam shows no injury to the cornea and no blood within the true eye itself. There appears to be a contusion to the upper sclera of your left eyeball which is resulted in pain with certain movements causing some mild double vision but this should settle down over the next 36 hours as the swelling goes away. Wound / abrasion above the eyebrow needs to be cleansed daily with soap and water. Showering is okay. Then apply topical anabolic such as bacitracin or Polysporin to the wound once daily until healed. Follow-up with milieu coordinator or eye doctor if not completely back to normal in 36 hours time. Tetanus, diphtheria and pertussis vaccine was updated today and is good for the next 10 years.
[2017-09-23] MEDS ORDERED: Diphtheria,Pertussis(Acell),Tetanus Vaccine 0.5 ML SDV IM ONE (15:55)
== END 2017-09-23 16:20 | disposition home or self-care (01) ==
LOC: JD.ED 15:17
DX: S00.12XA Contusion of left eyelid and periocular area, initial encounter (principal); Z23 Encounter for immunization; I10 Essential (primary) hypertension; E78.00 Pure hypercholesterolemia, unspecified; Z79.82 Long term (current) use of aspirin; Z79.899 Other long term (current) drug therapy; W22.8XXA Striking against or struck by other objects, initial encounter; Y92.096 Garden or yard of other non-institutional residence as the place of occurrence of the external cause
CPT/HCPCS: 90471; 90715; 99283; 99283-25

== ENCOUNTER 2018-05-14 20:57 | Emergency (ER) | payer OTHER ==
--- NOTE | 2018-05-14 21:38 | EDM.PDOC ---
ED HPI GENERAL MEDICAL PROBLEM - General Chief Complaint: Cardiovascular Problem Stated Complaint: A-FIB Time Seen by Provider: 05/14/18 21:47 Source of Information: Reports: Patient History Limitations: Reports: No Limitations - History of Present Illness INITIAL COMMENTS - FREE TEXT/NARRATIVE: 37-year-old male presents to the ED with recognized palpitations in his chest. Patient has a history of paroxysmal atrial fibrillation. His required ablation 2 in the past. He has had previous open heart surgery and aortic valve replacement. He remains on Coumadin chronically. He is on flecainide 300 mg 3 times a day to try and prevent arrhythmias from occurring. Also on propanolol 80 mg long-acting for rate control. He appreciated onset of symptoms highly earlier in the morning as he felt fatigued and tired but when he checked his pulse it was in the mid 80s. After work , about mid afternoon today 1600 hrs. he started to feel palpitations when he got home he checked his pulse and identified that his rate was up as high as 130/min. He has no other symptoms of chest pain shortness of breath or dizziness. He states his blood pressure always runs a bit on the low side due to the current medications he is on. Patient usually receives Cardizem intravenously and for the most part has converted back to sinus rhythm. He has had cardioversion on at least 2 occasions however which was successful both times. Monitor shows atrial fibrillation with a rate up to 1 35/m. This is confirmed with ECG. Rate is 68-1 40/m on ECG. There is a nonspecific inotropic check her conduction delay. Early R-wave transition suggesting right ventricle hypertrophy versus septal hypertrophy pattern. There is T-wave inversion V3 to V4 and flattening V5 and P6 suggesting possible ischemia. There is mild left axis deviation of -6. The QTc interval is normal. Onset: Today, Sudden Onset Date: 05/14/18 Onset Time: 16:00 Duration: Hour(s):, Constant Location: Reports: Chest (Aware of palpitations intermittently in his chest.) Quality: Reports: Same as Previous Episode. Denies: Ache, Dull, Pressure, Sharp , Stabbing, Throbbing, Other Severity: Mild Improves with: Reports: None Worsens with: Reports: None Context: Reports: Other (History of paroxysmal atrial fibrillation.). Denies: Activity, Exercise, Lifting, Sick Contact, Trauma Associated Symptoms: Reports: Loss of Appetite, Malaise. 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.) - Related Data Allergies Allergy/AdvReac Type Severity Reaction Status Date / Time iodine Allergy Itching Verified 05/14/18 21:05 Home Meds: Home Meds Aspirin [Ecotrin] 325 mg PO DAILY 01/09/17 [History] Pravastatin Sodium 10 mg PO DAILY 01/09/17 [History] Propafenone [Rythmol] 300 mg PO Q8H #180 tablet 01/09/17 [Rx] Vitamin E 400 intnl unit PO DAILY 01/09/17 [History] Zinc Amino Acid Chelate [Zinc Chelated] 50 mg PO DAILY 01/09/17 [History] Calcium Carbonate/Vitamin D3 [Calcium 500 + Vit D Caplet] 1 each PO DAILY [History] Fish Oil/[place]-3 Fatty Acids [Fish Oil] 1 each PO DAILY 07/31/17 [History] Nystatin 1 applic TP ASDIRECTED PRN 07/31/17 [History] Propranolol HCl [Inderal Xl] 80 mg PO DAILY 07/31/17 [History] Triamcinolone Acetonide [Triamcinolone Acetonide 0.1% Crm] 1 applic TOP ASDIRECTED PRN 07/31/17 [History] Ubidecarenone [Co Q-10] 100 mg PO DAILY 07/31/17 [History] Warfarin [Coumadin] 7.5 mg PO ASDIRECTED 07/31/17 [History] Warfarin [Coumadin] 10 mg PO ASDIRECTED 07/31/17 [History] Past Medical History HEENT History: Reports: Impaired Vision Other HEENT History: wears eyeglasses Cardiovascular History: Reports: Afib (Paroxysmal), Arrhythmia, Heart Valve Replacement (Aortic valve replacement), High Cholesterol, Hypertension Respiratory History: Reports: Pneumonia, Recurrent Musculoskeletal History: Reports: Fracture, Other (See Below) Other Musculoskeletal History: R) wrist surgery. 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 - Past Surgical History Cardiovascular Surgical History: Reports: Valve Replacement Musculoskeletal Surgical History: Reports: Shoulder Surgery Social & Family History - Family History Family Medical History: Noncontributory - Tobacco Use Smoking Status *Q: Never Smoker - Caffeine Use Caffeine Use: Reports: Coffee - Recreational Drug Use Recreational Drug Use: No - Living Situation & Occupation Living situation: Reports: Occupation: Employed ED ROS GENERAL - Review of Systems Review Of Systems: See Below Constitutional: Reports: Malaise, Decreased Appetite. Denies: Fever, Chills HEENT: Reports: No Symptoms Respiratory: Denies: Shortness of Breath, Wheezing, Pleuritic Chest Pain, Cough , Sputum Cardiovascular: Reports: Blood Pressure Problem, Dyspnea on Exertion. Denies: Chest Pain, Claudication, Edema, Lightheadedness, Orthopnea (Blood pressure tends to run low on current medications.) Endocrine: Reports: No Symptoms GI/Abdominal: Reports: No Symptoms : Reports: No Symptoms Musculoskeletal: Reports: No Symptoms Skin: Reports: No Symptoms Neurological: Reports: No Symptoms Psychiatric: Reports: No Symptoms Hematologic/Lymphatic: Reports: No Symptoms Immunologic: Reports: No Symptoms ED EXAM, GENERAL - Physical Exam Exam: See Below Exam Limited By: No Limitations General Appearance: Alert, WD/WN, No Apparent Distress, Other (Vital signs show heart rate in the 120s to 1 35/m. BP 108/88 sats are 98% on room air) Eye Exam: Bilateral Eye: Normal Inspection Throat/Mouth: Normal Inspection, Normal Lips, Normal Oropharynx Neck: Normal Inspection, Supple, Non-Tender, Full Range of Motion, Other (No jugular venous distention). No: Carotid Bruit, Lymphadenopathy (L), Lymphadenopathy (R) Respiratory/Chest: No Respiratory Distress, Lungs Clear, Normal Breath Sounds, No Accessory Muscle Use, Chest Non-Tender. No: Respiratory Distress Cardiovascular: Normal Peripheral Pulses, Tachycardia, Irregularly Irregular ( Monitor confirms atrial fibrillation with a rate up to 135/m). No: Regular Rate , Rhythm, No Edema, No Gallop, JVD Peripheral Pulses: 2+: Posterior Tibial (L), Posterior Tibial (R), Dorsalis Pedis (L), Dorsalis Pedis (R), 3+: Carotid (L), Carotid (R) GI/Abdominal: Normal Bowel Sounds, Soft, Non-Tender, No Organomegaly, No Abnormal Bruit, No Mass, Pelvis Stable, Distended (Abdomen is mildly distended and tympanitic to percussion.) Back Exam: Normal Inspection, Full Range of Motion. No: CVA Tenderness (L), CVA Tenderness (R) Extremities: Normal Inspection, Normal Range of Motion, Non-Tender, Pedal Edema. No: No Pedal Edema Neurological: Alert, Oriented, CN II-XII Intact (Trace patient will edema in his feet.), Normal Cognition Psychiatric: Normal Affect, Normal Mood Skin Exam: Warm, Dry, Intact, Normal Color, No Rash EKG INTERPRETATION EKG Date: 05/14/18 Time: 21:13 Rhythm: A-Fib (With rate of 60-140/m) Rate (Beats/Min): 105 [place]: LAD-Left [place] Deviation (Mild left axis deviation of -6) P-Wave: Absent QRS: Other (There is early R-wave transition in V2 V3 suggesting right ventricular hypertrophy versus septal hypertrophy pattern. There is a nonspecific intraventricular conduction delay.) ST-T: Other (Diffuse T-wave inversion V3 V4 and flattening V5 and 6) QT: Normal EKG Interpretation Comments: Abnormal ECG Course - Vital Signs Last Recorded V/S: Last Vital Signs Temp 36.2 C 05/14/18 21:00 Pulse 81 05/15/18 01:39 Resp 16 05/14/18 21:00 BP 95/85 05/15/18 01:39 Pulse Ox 98 05/14/18 21:00 Orthostatic Blood Pressure [ 104/83 Standing] Orthostatic Blood Pressure [ 87/72 Sitting] Orthostatic Blood Pressure [ 98/77 Supine] - Orders/Labs/Meds Orders: Active Orders 24 hr Category Date Time Status EKG Documentation Completion [RC] STAT Care 05/14/18 21:57 Active Sodium Chloride 0.9% [Normal Saline] 1,000 ml Med 05/14/18 22:00 Active IV ASDIRECTED Medication Orders Sodium Chloride (Normal Saline) 1,000 mls @ 125 mls/hr IV ASDIRECTED SHANNEN Last Admin: 05/14/18 22:18 Dose: 125 mls/hr Labs: Laboratory Tests 05/14/18 05/14/18 05/14/18 Range/Units 21:14 21:14 21:14 WBC 5.96 (4.23-9.07) K/mm3 RBC 5.04 (4.63-6.08) M/mm3 Hgb 15.8 (13.7-17.5) gm/L Hct 43.8 (40.1-51.0) % MCV 86.9 (79.0-92.2) fl MCH 31.3 (25.7-32.2) pg MCHC 36.1 H (32.2-35.5) g/dl RDW Std Deviation 39.8 (35.1-43.9) fL Plt Count 142 L (163-337) K/mm3 MPV 10.6 (9.4-12.3) fl Neutrophils % (Manual) 41 (40-60) % Band Neutrophils % 0 (0-10) % Lymphocytes % (Manual) 49 H (20-40) % Atypical Lymphs % 0 % Monocytes % (Manual) 5 (2-10) % Eosinophils % (Manual) 4 (0.8-7.0) % Basophils % (Manual) 1 (0.2-1.2) Platelet Estimate Adequate Plt Morphology Comment Normal RBC Morph Comment Normal PT (9.5-12.1) SECONDS INR Sodium 140 (136-145) mEq/L Potassium 4.1 (3.5-5.1) mEq/L Chloride 106 (98-107) mEq/L Carbon Dioxide 26 (21-32) mEq/L Anion Gap 12.1 (5-15) BUN 14 (7-18) mg/dL Creatinine 0.9 (0.7-1.3) mg/dL Est Cr Clr Drug Dosing 102.34 mL/min Estimated GFR (MDRD) > 60 (>60) mL/min BUN/Creatinine Ratio 15.6 (14-18) Glucose 100 (74-106) mg/dL Calcium 9.3 (8.5-10.1) mg/dL Magnesium 1.9 (1.8-2.4) mg/dl Total Bilirubin 0.5 (0.2-1.0) mg/dL AST 14 L (15-37) U/L ALT 22 (16-63) U/L Alkaline Phosphatase 65 (46-116) U/L Troponin I (0.00-0.056) ng/mL NT-Pro-B Natriuret Pep 1247 H (0-125) pg/mL Total Protein 6.9 (6.4-8.2) g/dl Albumin 3.9 (3.4-5.0) g/dl Globulin 3.0 gm/dL Albumin/Globulin Ratio 1.3 (1-2) 05/14/18 05/14/18 Range/Units 21:14 21:16 WBC (4.23-9.07) K/mm3 RBC (4.63-6.08) M/mm3 Hgb (13.7-17.5) gm/L Hct (40.1-51.0) % MCV (79.0-92.2) fl MCH (25.7-32.2) pg MCHC (32.2-35.5) g/dl RDW Std Deviation (35.1-43.9) fL Plt Count (163-337) K/mm3 MPV (9.4-12.3) fl Neutrophils % (Manual) (40-60) % Band Neutrophils % (0-10) % Lymphocytes % (Manual) (20-40) % Atypical Lymphs % % Monocytes % (Manual) (2-10) % Eosinophils % (Manual) (0.8-7.0) % Basophils % (Manual) (0.2-1.2) Platelet Estimate Plt Morphology Comment RBC Morph Comment PT 12.4 H (9.5-12.1) SECONDS INR 1.14 Sodium (136-145) mEq/L Potassium (3.5-5.1) mEq/L Chloride (98-107) mEq/L Carbon Dioxide (21-32) mEq/L Anion Gap (5-15) BUN (7-18) mg/dL Creatinine (0.7-1.3) mg/dL Est Cr Clr Drug Dosing mL/min Estimated GFR (MDRD) (>60) mL/min BUN/Creatinine Ratio (14-18) Glucose (74-106) mg/dL Calcium (8.5-10.1) mg/dL Magnesium (1.8-2.4) mg/dl Total Bilirubin (0.2-1.0) mg/dL AST (15-37) U/L ALT (16-63) U/L Alkaline Phosphatase (46-116) U/L Troponin I < 0.017 (0.00-0.056) ng/mL NT-Pro-B Natriuret Pep (0-125) pg/mL Total Protein (6.4-8.2) g/dl Albumin (3.4-5.0) g/dl Globulin gm/dL Albumin/Globulin Ratio (1-2) Meds: Medications Generic Name Dose Route Start Last Admin Trade Name Freq PRN Reason Stop Dose Admin Sodium Chloride 1,000 mls @ 125 mls/hr 05/14/18 22:00 05/14/18 22:18 Normal Saline IV 125 mls/hr ASDIRECTED SHANNEN Administration Discontinued Medications Generic Name Dose Route Start Last Admin Trade Name Freq PRN Reason Stop Dose Admin Diltiazem HCl 5 mg 05/14/18 21:56 05/14/18 22:18 Cardizem IVPUSH 05/14/18 21:57 5 mg ONETIME ONE Administration Diltiazem HCl 10 mg 05/14/18 22:27 05/14/18 22:38 Cardizem IVPUSH 05/14/18 22:28 10 mg ONETIME ONE Administration Diltiazem HCl 5 mg 05/15/18 00:13 05/15/18 00:17 Cardizem IVPUSH 05/15/18 00:14 5 mg ONETIME ONE Administration Furosemide 40 mg 05/15/18 00:13 05/15/18 00:17 Lasix IVPUSH 05/15/18 00:14 40 mg NOW ONE Administration Metoprolol Tartrate 5 mg 05/15/18 01:24 05/15/18 01:39 Lopressor IVPUSH 05/15/18 01:25 5 mg ONETIME ONE Administration - Radiology Interpretation Free Text/Narrative:: 57-year-old male presents the ED with atrial fibrillation with rapid ventricular response up to 140/m. Patient is a history of paroxysmal atrial fibrillation and has undergone cardiac ablation procedures 2. He has had aortic valve replacement in the past. Tolerating rate at this time pretty well with no dizziness lightheadedness or chest pain. Appreciates feeling slightly weak with no appetite. Patient has required cardioversion 2 in the past. However often he receives Cardizem intravenously and will convert back to sinus rhythm. ECG confirms atrial fibrillation with a rate up to 1 40/m. Plan routine labs including cardiac markers and PT/INR to be done. Patient is on Coumadin chronically. Will be to give him Cardizem 5 mg IV bolus to see how his heart rate response and his blood pressure. Blood pressure tends to run very low rate around 102 systolic at this time. - Re-Assessments/Exams Free Text/Narrative Re-Assessment/Exam: 05/14/18 22:27 Patient's heart rate has not changed much. It remains as high as 1 25/m atrial fibrillation. Was after 5 mg of Cardizem given IV. Blood pressure didn't change dramatically. It is currently 111/81. Will repeat Cardizem 10 mg IV bolus at this time 05/14/18 23:52 White count is 5.96 with a slight right shift of 49% neutrophils and 41% neutrophils. Hemoglobin is 15.8 with hematocrit of 43.8. Sodium 140 with potassium of 4.1. Cord 16 with a bicarbonate 26. And a gap is 12.1. BUNs 14 with a creatinine of 0.9. GFR is greater than 60. Glucose is 100. Calcium is 9.3 magnesium is normal at 1.9. Bilirubin is 0.5 AST is 14 with an ALT of 22. Troponin I is less than 0.017. BNP is slightly elevated at 1247. Total protein is 6.9 with an albumin of 3.9. 05/15/18 00:14 his blood pressure has been running on the low side like 94 systolic. Reluctant to give him any further doses of Cardizem as I'm but with orthostatic check his blood pressure asked he went up with standing. It is now currently 100/73 heart rate remains in the 90s but remains in atrial fibrillation. Usually he converts while in the ED. I will therefore try another 5 mg of Cardizem IV and with his lab suggesting that he has BNP of 1247 I will give him Lasix 40 mg IV as well to help take the workload office heart. 05/15/18 01:24 remains in atrial fibrillation with rate is high as 1 20/m. Blood pressure is 90s 8/79. Will try low-dose Lopressor 5 mg IV over 3-5 minutes to help suppress atrial fibrillation rate and hopefully convert to sinus. 05/15/18 02:14 heart rate is improved into the 80s and low 90s. Remains in atrial fib however. BP is 94/67 after Lopressor 5 mg has been given IV 15 minutes ago. 05/15/18 03:20 Departure - Departure Time of Disposition: 02:55 Disposition: Home, Self-Care 01 Reason for Transfer *Q: Other Condition: Fair Clinical Impression: Paroxysmal atrial fibrillation with rapid ventricular response, Atrial fibrillation with RVR Instructions: Atrial Fibrillation, [id number] Referrals: Cali Hernandez MD [Primary Care Provider] - Forms: ED Department Discharge Additional Instructions: Evaluation in the emergency room in regards to development of atrial fibrillation with rapid ventricular response. Rate went up to about as high as 1 35/m during stay in the ED. Multiple attempts to convert to back to regular rhythm with Cardizem IV and a dose of Lopressor failed to convert to back to regular sinus rhythm. However there is a good chance that he will convert back to regular rhythm on her own in the next 48 hours. Options were to provide cardioversion here in the emergency department or follow-up with food and beverage assistant manager in [place] for procedure if atrial fibrillation persists. Until you all current medications as you have been taking area lab tests did not reveal any electrolyte or magnesium imbalances. It did reveal slight increase in fluid in your lungs and you were given Lasix 40 mg intravenously to help with that. Once the heart rate is back in regular rhythm and usually plays catch up in the fluid in your lungs with get better on its own. Return to the emergency department if you feel your heart is racing again this particularly if it's persistently more than 120/min or call your food and beverage assistant manager for him to arrange for electrical cardioversion. - My Orders Last 24 Hours: My Active Orders 05/14/18 21:57 EKG Documentation Completion [RC] STAT 05/14/18 22:00 Sodium Chloride 0.9% [Normal Saline] 1,000 ml IV ASDIRECTED - Assessment/Plan Last 24 Hours: My Active Orders 05/14/18 21:57 EKG Documentation Completion [RC] STAT 05/14/18 22:00 Sodium Chloride 0.9% [Normal Saline] 1,000 ml IV ASDIRECTED
[2018-05-14] MEDS ORDERED: Diltiazem 50 MG/10 ML SDV IVPUSH ONE ×2 (21:56→22:27)
[2018-05-14] MEDS ORDERED: Sodium Chloride 0.9% 1,000 ML IV SCH (22:00)
[2018-05-15] MEDS ORDERED: Diltiazem 50 MG/10 ML SDV IVPUSH ONE (00:13)
[2018-05-15] MEDS ORDERED: Furosemide 40 MG/4 ML VIAL IVPUSH ONE (00:13)
[2018-05-15] MEDS ORDERED: Metoprolol Tartrate 5 MG/5 ML SDV IVPUSH ONE (01:24)
[2018-05-15 01:40] VITALS: BP 95/85
--- NOTE | 2018-05-19 10:06 | EDM.PDOC ---
ED HPI GENERAL MEDICAL PROBLEM - General Chief Complaint: Cardiovascular Problem Stated Complaint: A-FIB Time Seen by Provider: 05/14/18 21:47 Source of Information: Reports: Patient, Family (spouse) History Limitations: Reports: No Limitations - History of Present Illness INITIAL COMMENTS - FREE TEXT/NARRATIVE: 57-year-old male presents to the ED with a recurrent bout of atrial fibrillation with rate up to 135/m. Patient has a history of intermittent paroxysmal atrial fibrillation. He's had open heart surgery before with valvular replacement I believe mitral valve. He has had of ablation surgery 2 . He remains on flecainide 300 mg 3 times a day and long-acting propanolol 80 mg once daily for rate control. Status started to feel unwell this morning but when he checked his pulse was in the 80s and 90s. By time he got home from work about 438 checked his pulse and it was in the 120s. He has tolerated this well with no chest pain. Slight dyspnea. No dizziness. No cough or sputum production. Not really hungry at this time. Onset: Today, Sudden Onset Date: 05/14/18 Onset Time: 16:30 Duration: Minutes:, Hour(s): Location: Reports: Chest. Denies: Head Quality: Reports: Other Severity: Moderate (Palpitations) Improves with: Reports: None Worsens with: Reports: Immobilization Context: Denies: Activity, Exercise, Lifting, Sick Contact, Trauma, Other Associated Symptoms: Denies: No Other Symptoms, Confusion, Chest Pain, Cough, cough w sputum, Diaphoresis, Fever/Chills, Headaches, Loss of Appetite, Malaise , Nausea/Vomiting, Rash, Seizure, Shortness of Breath, Syncope Treatments [employer]: Reports: Other (see below) (Has taken no extra medication today. ) - Related Data Allergies Allergy/AdvReac Type Severity Reaction Status Date / Time iodine Allergy Itching Verified 05/14/18 21:05 Home Meds: Home Meds Aspirin [Ecotrin] 81 mg PO DAILY 01/09/17 [History] Pravastatin Sodium 10 mg PO DAILY 01/09/17 [History] Propafenone [Rythmol] 300 mg PO Q8H #180 tablet 01/09/17 [Rx] Calcium Carbonate/Vitamin D3 [Calcium 500 + Vit D Caplet] 300 each PO DAILY 02/05 [History] Nystatin 1 applic TP ASDIRECTED PRN 07/31/17 [History] Propranolol HCl [Inderal Xl] 80 mg PO DAILY 07/31/17 [History] Triamcinolone Acetonide [Triamcinolone Acetonide 0.1% Crm] 1 applic TOP ASDIRECTED PRN 07/31/17 [History] Ubidecarenone [Co Q-10] 100 mg PO DAILY 07/31/17 [History] Magnesium Glycinate [Mag Glycinate] 100 mg PO DAILY 05/15/18 [History] Multivitamins [Tab-A-Mary Kay] 1 tab PO DAILY 05/15/18 [History] Past Medical History HEENT History: Reports: Impaired Vision Other HEENT History: wears eyeglasses Cardiovascular History: Reports: Afib (Paroxysmal), Heart Murmur, Heart Valve Replacement, High Cholesterol, Hypertension Respiratory History: Reports: Pneumonia, Recurrent Musculoskeletal History: Reports: Fracture, Other (See Below) Other Musculoskeletal History: R) wrist surgery. 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 - Past Surgical History Cardiovascular Surgical History: Reports: Valve Replacement Musculoskeletal Surgical History: Reports: Shoulder Surgery Social & Family History - Family History Family Medical History: Noncontributory - Tobacco Use Smoking Status *Q: Never Smoker - Caffeine Use Caffeine Use: Reports: Coffee - Recreational Drug Use Recreational Drug Use: No - Living Situation & Occupation Living situation: Reports: Occupation: Employed ED ROS GENERAL - Review of Systems Review Of Systems: See Below Constitutional: Reports: Decreased Appetite. Denies: Fever, Chills, Malaise, Weakness, Fatigue, Weight Loss HEENT: Reports: Glasses Respiratory: Denies: Shortness of Breath, Wheezing, Pleuritic Chest Pain, Cough , Sputum Cardiovascular: Reports: Blood Pressure Problem, Dyspnea on Exertion (At time), Lightheadedness, Palpitations. Denies: Chest Pain, Claudication (Tends to run quite low due to medications he is on.), Edema (At time), Orthopnea Endocrine: Reports: Fatigue GI/Abdominal: Reports: No Symptoms (From medications) : Reports: Frequency Musculoskeletal: Reports: No Symptoms Skin: Reports: No Symptoms Neurological: Reports: No Symptoms Psychiatric: Reports: No Symptoms Hematologic/Lymphatic: Reports: No Symptoms Immunologic: Reports: No Symptoms ED EXAM, GENERAL - Physical Exam Exam: See Below Exam Limited By: No Limitations General Appearance: Alert, WD/WN, Anxious, Mild Distress, Other (He is afebrile. Monitor shows atrial fibrillation with a rapid ventricular rate up to 1 40/m at times. BP however his work around 100/85) Eye Exam: Bilateral Eye: Normal Inspection Ears: Normal External Exam Throat/Mouth: Normal Inspection, Normal Lips, Normal Oropharynx Head: Atraumatic, Normocephalic Neck: Normal Inspection, Supple, Non-Tender, Full Range of Motion, Other. No: Carotid Bruit, Lymphadenopathy (L), Lymphadenopathy (R) Respiratory/Chest: No Respiratory Distress, Lungs Clear (No JVD), Normal Breath Sounds, No Accessory Muscle Use, Chest Non-Tender, Respiratory Distress Cardiovascular: No Edema, No Gallop, No Murmur (Grade 1/6 systolic ejection murmur best heard at the left lateral sternal border. Palpable click from valvular heart disease repair), No Rub. No: Normal Peripheral Pulses, Regular Rate, Rhythm Peripheral Pulses: 3+: Posterior Tibial (L), Posterior Tibial (R), Dorsalis Pedis (L), Dorsalis Pedis (R) GI/Abdominal: Normal Bowel Sounds, Soft, Non-Tender, No Organomegaly, No Abnormal Bruit, No Mass, Pelvis Stable (Male) Exam: No Hernia Back Exam: Normal Inspection, Full Range of Motion. No: CVA Tenderness (L), CVA Tenderness (R) Extremities: Normal Inspection, Normal Range of Motion, Non-Tender, No Pedal Edema Neurological: Alert, Oriented, CN II-XII Intact, Normal Cognition, Normal Gait Psychiatric: Normal Affect, Anxious Skin Exam: Warm (Mildly anxious), Dry, Intact, Normal Color, No Rash EKG INTERPRETATION EKG Date: 05/14/18 Time: 21:18 Rhythm: A-Fib (With a rate of 85-1 40/m) Rate (Beats/Min): 120 [place]: Normal P-Wave: Absent QRS: Other ST-T: Normal QT: Prolonged EKG Interpretation Comments: Abnormal ECG Course - Vital Signs Last Recorded V/S: Last Vital Signs Temp 36.2 C 05/14/18 21:00 Pulse 81 05/15/18 01:39 Resp 16 05/14/18 21:00 BP 95/85 05/15/18 01:39 Pulse Ox 98 05/14/18 21:00 Orthostatic Blood Pressure [ 104/83 Standing] Orthostatic Blood Pressure [ 87/72 Sitting] Orthostatic Blood Pressure [ 98/77 Supine] - Orders/Labs/Meds Labs: Laboratory Tests 05/14/18 05/14/18 05/14/18 Range/Units 21:14 21:14 21:14 WBC 5.96 (4.23-9.07) K/mm3 RBC 5.04 (4.63-6.08) M/mm3 Hgb 15.8 (13.7-17.5) gm/L Hct 43.8 (40.1-51.0) % MCV 86.9 (79.0-92.2) fl MCH 31.3 (25.7-32.2) pg MCHC 36.1 H (32.2-35.5) g/dl RDW Std Deviation 39.8 (35.1-43.9) fL Plt Count 142 L (163-337) K/mm3 MPV 10.6 (9.4-12.3) fl Neutrophils % (Manual) 41 (40-60) % Band Neutrophils % 0 (0-10) % Lymphocytes % (Manual) 49 H (20-40) % Atypical Lymphs % 0 % Monocytes % (Manual) 5 (2-10) % Eosinophils % (Manual) 4 (0.8-7.0) % Basophils % (Manual) 1 (0.2-1.2) Platelet Estimate Adequate Plt Morphology Comment Normal RBC Morph Comment Normal PT (9.5-12.1) SECONDS INR Sodium 140 (136-145) mEq/L Potassium 4.1 (3.5-5.1) mEq/L Chloride 106 (98-107) mEq/L Carbon Dioxide 26 (21-32) mEq/L Anion Gap 12.1 (5-15) BUN 14 (7-18) mg/dL Creatinine 0.9 (0.7-1.3) mg/dL Est Cr Clr Drug Dosing 102.34 mL/min Estimated GFR (MDRD) > 60 (>60) mL/min BUN/Creatinine Ratio 15.6 (14-18) Glucose 100 (74-106) mg/dL Calcium 9.3 (8.5-10.1) mg/dL Magnesium 1.9 (1.8-2.4) mg/dl Total Bilirubin 0.5 (0.2-1.0) mg/dL AST 14 L (15-37) U/L ALT 22 (16-63) U/L Alkaline Phosphatase 65 (46-116) U/L Troponin I (0.00-0.056) ng/mL NT-Pro-B Natriuret Pep 1247 H (0-125) pg/mL Total Protein 6.9 (6.4-8.2) g/dl Albumin 3.9 (3.4-5.0) g/dl Globulin 3.0 gm/dL Albumin/Globulin Ratio 1.3 (1-2) 05/14/18 05/14/18 Range/Units 21:14 21:16 WBC (4.23-9.07) K/mm3 RBC (4.63-6.08) M/mm3 Hgb (13.7-17.5) gm/L Hct (40.1-51.0) % MCV (79.0-92.2) fl MCH (25.7-32.2) pg MCHC (32.2-35.5) g/dl RDW Std Deviation (35.1-43.9) fL Plt Count (163-337) K/mm3 MPV (9.4-12.3) fl Neutrophils % (Manual) (40-60) % Band Neutrophils % (0-10) % Lymphocytes % (Manual) (20-40) % Atypical Lymphs % % Monocytes % (Manual) (2-10) % Eosinophils % (Manual) (0.8-7.0) % Basophils % (Manual) (0.2-1.2) Platelet Estimate Plt Morphology Comment RBC Morph Comment PT 12.4 H (9.5-12.1) SECONDS INR 1.14 Sodium (136-145) mEq/L Potassium (3.5-5.1) mEq/L Chloride (98-107) mEq/L Carbon Dioxide (21-32) mEq/L Anion Gap (5-15) BUN (7-18) mg/dL Creatinine (0.7-1.3) mg/dL Est Cr Clr Drug Dosing mL/min Estimated GFR (MDRD) (>60) mL/min BUN/Creatinine Ratio (14-18) Glucose (74-106) mg/dL Calcium (8.5-10.1) mg/dL Magnesium (1.8-2.4) mg/dl Total Bilirubin (0.2-1.0) mg/dL AST (15-37) U/L ALT (16-63) U/L Alkaline Phosphatase (46-116) U/L Troponin I < 0.017 (0.00-0.056) ng/mL NT-Pro-B Natriuret Pep (0-125) pg/mL Total Protein (6.4-8.2) g/dl Albumin (3.4-5.0) g/dl Globulin gm/dL Albumin/Globulin Ratio (1-2) Meds: Medications Discontinued Medications Generic Name Dose Route Start Last Admin Trade Name Freq PRN Reason Stop Dose Admin Diltiazem HCl 5 mg 05/14/18 21:56 05/14/18 22:18 Cardizem IVPUSH 05/14/18 21:57 5 mg ONETIME ONE Administration Diltiazem HCl 10 mg 05/14/18 22:27 05/14/18 22:38 Cardizem IVPUSH 05/14/18 22:28 10 mg ONETIME ONE Administration Diltiazem HCl 5 mg 05/15/18 00:13 05/15/18 00:17 Cardizem IVPUSH 05/15/18 00:14 5 mg ONETIME ONE Administration Furosemide 40 mg 05/15/18 00:13 05/15/18 00:17 Lasix IVPUSH 05/15/18 00:14 40 mg NOW ONE Administration Sodium Chloride 1,000 mls @ 125 mls/hr 05/14/18 22:00 05/14/18 22:18 Normal Saline IV 125 mls/hr ASDIRECTED SHANNEN Administration Metoprolol Tartrate 5 mg 05/15/18 01:24 05/15/18 01:39 Lopressor IVPUSH 05/15/18 01:25 5 mg ONETIME ONE Administration - Radiology Interpretation Free Text/Narrative:: 57-year-old male presents to the ED with acute onset of paroxysmal atrial fibrillation. Patient has a chronic history of paroxysmal atrial fibrillation treated with ablation therapy 2 in the past and remains on flecainide 300 mg 3 times a day and propranolol long-acting 80 mg once daily for rate control. He states he didn't feel too good this morning when he woke up but his heart rate when he checks it seemed to be in the 80s and okay. As the day went on he started to feel more fatigued and became more aware of palpitations particularly after work tonight. When he checked them his pulse rate around 1730 hrs. was in the 120s to 130s. Evening medications in the hopes that might settle down but it failed to do so. He therefore came to the ED for evaluation. Vital signs are stable but heart rate is in atrial fibrillation with RVR up to 1 40/m. Usually settles down after a dose or 2 of Cardizem IV. His blood pressure is quite low at 100/85 and this will limited ability to provide medications. Plan will be to give him Cardizem 5 mg IV at this time. Routine labs including cardiac markers and BNP to be done - Re-Assessments/Exams Free Text/Narrative Re-Assessment/Exam: 05/14/18 22:40: First dose of Cardizem 5 mg IV did not affect his blood pressure nor did it slowed his heart rate down. We'll proceed with 10 mg IV. 05/14/18 23:10: Labs reveal a normal white count at 5.96 with 41% neutrophils and slight right shift of 49% lymphocytes. No band cells noted hemoglobin 15.8 with hematocrit of 43.8. Platelet count 142,000. PT is 12.4 with an INR of 1.14. Sodium 140 with potassium of 4.1. Chloride 106 with a bicarbonate of 26. Anion gap is 12.1 with a BUN of 14. Creatinine is 0.9. GFR remains greater than 60. Glucose is 100 with a calcium of 9.3 magnesium is normal at 1.9. Liver function is normal. Troponin I was less than 0.017. BNP is elevated at 1247. Total protein is 6.9 with an albumin fraction of 3.9. Will repeat Cardizem 10 mg IV although blood pressure is now 95/84. 05/14/18 23:56: Rate drops transiently down into the 8590s but his blood pressure also dropped to as low as 85 systolic. This limits ability to keep on giving Cardizem IV. Try 5 mg of Cardiazem at this time. Rate is currently 124. Will have his orthostatic BPs checked hasn't been contemplating sending him home. Offered him cardioversion here in the ED versus adopting a wait and see approach over the next couple of days. He doesn't convert he can follow-up either here or with his group sales coordinator in [place]. 05/15/18 01:31 patient has not yet converted back to sinus rhythm. Remains in the 120s atrial fibrillation. We'll try Lopressor 5 mg IV over the next 5 minutes to see if this works any better than Cardizem. 05/15/18 02:32: Heart rate is regular around 10 5/m. Patient doesn't want to pursue cardioversion at this time. Will therefore be discharged to home and adopt a wait and see approach if he doesn't convert back to sinus on his own over the next 48 hours. He'll return to the ED or follow up in [place] with cardiology services if he remains in rapid atrial flutter. Departure - Departure Time of Disposition: 03:00 Disposition: Home, Self-Care 01 Reason for Transfer *Q: Other Condition: Fair Clinical Impression: Paroxysmal atrial fibrillation with rapid ventricular response, Atrial fibrillation with RVR Instructions: Atrial Fibrillation, [id number] Referrals: Cali Hernandez MD [Primary Care Provider] - Forms: ED Department Discharge Additional Instructions: Evaluation in the emergency room in regards to development of atrial fibrillation with rapid ventricular response. Rate went up to about as high as 1 35/m during stay in the ED. Multiple attempts to convert to back to regular rhythm with Cardizem IV and a dose of Lopressor failed to convert to back to regular sinus rhythm. However there is a good chance that he will convert back to regular rhythm on her own in the next 48 hours. Options were to provide cardioversion here in the emergency department or follow-up with group sales coordinator in [place] for procedure if atrial fibrillation persists. Until you all current medications as you have been taking area lab tests did not reveal any electrolyte or magnesium imbalances. It did reveal slight increase in fluid in your lungs and you were given Lasix 40 mg intravenously to help with that. Once the heart rate is back in regular rhythm and usually plays catch up in the fluid in your lungs with get better on its own. Return to the emergency department if you feel your heart is racing again this particularly if it's persistently more than 120/min or call your group sales coordinator for him to arrange for electrical cardioversion.
== END 2018-05-15 03:09 | disposition home or self-care (01) ==
LOC: JD.ED 20:57
DX: I48.0 Paroxysmal atrial fibrillation (principal); I10 Essential (primary) hypertension; E78.00 Pure hypercholesterolemia, unspecified; Z79.82 Long term (current) use of aspirin; Z79.899 Other long term (current) drug therapy; Z91.09 Other allergy status, other than to drugs and biological substances
CPT/HCPCS: 36415; 80053; 83735; 83880; 84484; 85007; 85027; 85610; 93005; 96361; 96374; 96375; 96376; 99285; J1940; J3490; J7040; 93010

== ENCOUNTER 2021-04-13 20:24 | Emergency (ER) | payer OTHER ==
[2021-04-13 20:51] VITALS: BP 171/100; PULSE 56
[2021-04-13] MEDS ORDERED: Acetaminophen/HYDROcodone 325-5 MG Tab PO ONE (21:01)
== END 2021-04-13 21:32 | disposition home or self-care (01) ==
LOC: JD.ED 20:24
DX: K02.9 Dental caries, unspecified (principal); E78.00 Pure hypercholesterolemia, unspecified; I10 Essential (primary) hypertension; I48.91 Unspecified atrial fibrillation; Z91.041 Radiographic dye allergy status
CPT/HCPCS: 99282; A9270; 99283